=== PATIENT | male | born 1940 | race Caucasian/White ===

== ENCOUNTER 2017-12-14 15:06 | Emergency (ER) | payer OTHER ==
[~2017-12-14] VITALS: Ht 177.8 cm; Wt 63.5 kg
== END 2017-12-15 19:41 | disposition home or self-care (01) ==
LOC: ER 15:06
DX: G40.89 Other seizures (principal); F10.239 Alcohol dependence with withdrawal, unspecified; I10 Essential (primary) hypertension; Z04.3 Encounter for examination and observation following other accident